=== PATIENT | male | born 2000 | race Caucasian/White ===

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

== ENCOUNTER 2021-01-04 16:32 | Emergency (ER) | payer OTHER ==
[2021-01-04] MEDS ORDERED: SILVADENE CREAM20 GM TOP (17:22)
[2021-01-04] MEDS ORDERED: LODINE CAP 300300 MG PO (17:22)
== END 2021-01-04 17:30 | disposition home or self-care (01) ==
LOC: ER1 16:32
DX: T22.212A Burn of second degree of left forearm, initial encounter (principal); T31.0 Burns involving less than 10% of body surface; F17.290 Nicotine dependence, other tobacco product, uncomplicated
CPT/HCPCS: 16020; 99283